=== PATIENT | female | born 1995 | race Caucasian/White ===

== ENCOUNTER 2016-09-01 09:28 | Emergency (ER) | payer BC ==
[~2016-09-01] VITALS: Ht 157.5 cm; Wt 60.0 kg
[2016-09-01] MEDS ORDERED: PROCTOZONE-HC30 GM PR (10:19)
[2016-09-01 10:26] VITALS: BP 123/85
== END 2016-09-01 10:27 | disposition home or self-care (01) ==
LOC: EME 09:28 → EXP 09:28
DX: K64.4 Residual hemorrhoidal skin tags (principal)
CPT/HCPCS: 99281; 99283